=== PATIENT | female | born 1940 | race Caucasian/White ===

== ENCOUNTER 2018-12-16 04:56 | Emergency (ER) | payer MEDICARE ==
[~2018-12-16] VITALS: Ht 147.3 cm; Wt 71.0 kg
[~2018-12-16 04:56] MED LIST: AVELOX400 MG PO; AZITHROMYCIN500 MG PO; COMBIVENT RESPIMAT IN; LEVEMIR1000 UNITS SC; LISINOPRIL10 MG PO; LOPRESSOR 550 MG/TAB PO
--- NOTE | 2018-12-16 05:17 | NUR ---
BREATHING TREATMENT GIVEN BACK TO BACK USING A MASK. BREATHING TECH. FOR GOOD DEPOSITION TO THE LUNGS
[2018-12-16 05:40] LABS: BILIRUBIN, TOTAL 0.5 mg/dL (0.0-1.4); CREATININE 1.2 mg/dL (0.5-1.0); POTASSIUM 4.6 mmol/l (3.5-5.1)
[2018-12-16 05:43] LABS: HEMATOCRIT 39.9 % (37.0-47.0); MEAN CORPUSCULAR HGB 30.2 pG CALC (26.0-32.0); MEAN CORPUSCULAR HGB CONC 32.6 g/L CALC (32.0-36.0); NEUT# 14.3 thou/uL (2.00-7.15); RED BLOOD COUNT 4.31 mill/uL (4.20-5.60); RED CELL DISTRI WIDTH 13.5 % (11.5-15.5)
[2018-12-16 05:44] LABS: MEAN CELL VOLUME 92.6 fL CALC (80.0-100.0)
[2018-12-16 05:46] LABS: ALBUMIN 4.9 g/dL (3.2-5.0)
[2018-12-16] MEDS ORDERED: PREDNISONE50 MG PO (06:26)
[2018-12-16] MEDS ORDERED: DOXYCYCL HYC100 MG PO (06:26)
[2018-12-16] MEDS ORDERED: VENTOLIN HFA IN (06:26)
[2018-12-16 06:45] VITALS: BP 115/52
== END 2018-12-16 06:52 | disposition home or self-care (01) ==
LOC: ED 04:56
PROVIDERS: Family Medicine
DX: J44.1 Chronic obstructive pulmonary disease with (acute) exacerbation (principal); M19.90 Unspecified osteoarthritis, unspecified site; E11.9 Type 2 diabetes mellitus without complications; I10 Essential (primary) hypertension; F17.200 Nicotine dependence, unspecified, uncomplicated; R06.02 Shortness of breath